=== PATIENT | female | born 1995 | race Two or more races ===

== ENCOUNTER 2023-01-28 03:52 | Inpatient (IN) ==
[2023-01-28] MEDS ORDERED: OXYTOCIN 30 UNITS/500 ML BAG IV PRN ×2 (04:52→05:49)
[2023-01-28] MEDS ORDERED: LIDOCAINE 1% LOCAL 20 ML VIAL INFIL PRN (04:52)
--- NOTE | 2023-01-28 05:52 | History & Physical Report ---
Date of Service January 28, 2023 Assessment & Plan (1) 38 weeks gestation of : (2) PROM (premature rupture of membranes): (3) Encounter for induction of labor: Plan Admit, iv, labs. begin pitocin to improve labor pattern. fhts categ 1. epidural when desires. denies questions or concerns. Admission and Anticipated Discharge Date Admission Date: January 28, 2023 History of Present Illness Chief Complaint: leaking fluid since 3am Primary Care Provider: NO PCP 27yo at 38+wks with above cc. Gross rom on arrival to L&D per nurse and cx 1cm. Contractions q4min but not painful. PNC uncomplicated. PNL rh pos, ri, gbs neg OBH: tab x 1 GYNH: nl paps, no stds Allergies Allergy/AdvReac Type Severity Reaction Status Date / Time No Known Allergies Allergy Verified 01/28/23 04:19 Home Medications Medication Instructions Recorded Confirmed Type prenat.vits,vishnu,hoz-kigz-leazk 1 tab PO DAILY 07/13/22 01/28/23 History sertraline 50 mg tablet (Zoloft) 50 mg PO DAILY 07/13/22 01/28/23 History breast pump #1 ea 09/27/22 01/26/23 Rx Patient History Medical History (Updated 01/28/23 @ 05:52 by Lucero Herron MD, FACOG) Anxiety Surgical History Status post surgery elective Family History (Updated 07/13/22 @ 13:14 by Bethanie Leavitt) Grandmother (Paternal) Breast cancer Aunt defect Denies family history of Ovarian cancer Colorectal cancer Social History (Updated 07/13/22 @ 13:16 by Bethanie Leavitt) Smoking Status: Never smoker Second Hand Exposure: No; Hx Alcohol Use: No Hx Substance Use: No Preferred Language: Bulgarian Communication Ability: Effective 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 Beliefs That Will Affect Care: None marital status: marital status details: Alethea Fernandez (30) [phone] Current Living Situation: Spouse Current Living Situation Comment: lives with spouse, birds current occupational status: unemployed Other Information That Helps Us Care for You: No Feels Safe at Home: Yes Safety Concerns: Feels Safe At This Time Assistive Devices: Glasses Review of Systems as per Subjective / HPI Physical Exam Constitutional: WD/WN, vitals as above Respiratory: normal respiratory effort, lungs clear to auscultation Cardiovascular: Rate/Rhythm: regular rate and regular rhythm Gastrointestinal (Abdomen): soft gravid nt efw 7# Musculoskeletal: no edema nontender calves Neurologic: grossly normal Psychiatric: A+Ox3, euthymic affect Genitourinary: OB Exam Monitor Tracing: + external FHT monitor used, + external uterine monitor used (q3), + category I and + normal FHT variability Results & Data Vital Signs (Past 12 Hours) Vital Signs Temp Pulse Resp BP 01/28/23 04:17 98.1 F 100 H 18 139/69 01/28/23 04:21 98.1 F 100 H 18 139/69 Coding Level of Care Code None Diagnoses 38 weeks gestation of Z3A.38 PROM (premature rupture of membranes) O42.90 Encounter for induction of labor Z34.90
[2023-01-28 06:03] LABS: Hematocrit (blood only) 36.3 % (37.0-47.0); Hemoglobin 12.4 g/dl (12.0-16.0); Mean Corpuscular Hemoglobin 31.8 pg (25.0-34.0); Mean Corpuscular Hgb Conc 34.2 g/dL (32.0-36.0); Mean Corpuscular Volume 93.1 fL (80.0-100.0); Mean Platelet Volume 10.8 fL (9.4-12.4); Platelet Count 236 K/uL (130-400); RDW Coefficient of Variation 13.3 % (11.5-14.5); RDW Standard Deviation 45.2 fL (36.4-46.3); White Blood Count 12.64 K/ul (4.8-10.8)
[2023-01-28] MEDS: LACTATED RINGER'S 1,000 ML IV PRN ×3 (06:27→19:11)
[2023-01-28] MEDS ORDERED: ePHEDrine sulfate 50 MG/ML AMP ONE (13:04)
[2023-01-28] MEDS ORDERED: fentaNYL citrate PF 100 MCG/2 ML VIAL ONE (13:05)
[2023-01-28] MEDS ORDERED: fentaNYL 2MCG/ML ROPIVACAINE 1.25MG/ML 100 ML BAG EPI ONE (13:05)
[2023-01-28] MEDS ORDERED: BUPIVACAINE 0.25% PF 30 ML VIAL ONE (13:05)
[2023-01-28] MEDS ORDERED: SODIUM CHLORIDE 0.9% PF INJ 10 ML VIAL ONE (13:05)
[2023-01-28] MEDS ORDERED: LIDOCAINE 2%/EPINEPHRINE 1:200,000 20 ML PF ONE (13:05)
--- NOTE | 2023-01-28 13:08 | Anesthesiology Consultation ---
Date of Service January 28, 2023 Assessment & Plan (1) Encounter for pre-operative examination: Chart Review Chart Review: Acceptable Risk for Labor Epidural History Height/Weight Height: 5 ft 6 in Weight: 87.09 kg Allergies Allergy/AdvReac Type Severity Reaction Status Date / Time No Known Allergies Allergy Verified 01/28/23 04:19 Medications Home Medications Medication Instructions Recorded Confirmed Last Taken prenat.vits,vishnu,acj-hhff-fgcmf 1 tab PO DAILY 07/13/22 01/28/23 01/27/23 21:00 sertraline 50 mg tablet (Zoloft) 50 mg PO DAILY 07/13/22 01/28/23 01/27/23 21:00 breast pump #1 ea 09/27/22 01/26/23 Unknown Active Medications Generic Name Dose Route Start Last Admin Trade Name Freq PRN Reason Stop Dose Admin Lactated Ringer's 1,000 mls @ 125 mls/hr 01/28/23 04:52 01/28/23 06:27 Lr IV 01/30/23 04:51 125 mls/hr .Q8H PRN Administration L&D Protocol Protocol Oxytocin 30 units in 500 mls @ 13 mls/hr 01/28/23 05:49 01/28/23 12:26 Pitocin IV 01/30/23 05:48 0.78 units/hr .Q24H PRN 13 mls/hr Labor Induction/Augmentation Titration Protocol 0.78 UNITS/HR Past Medical History Medical History Anxiety Past Family History Family History Grandmother (Paternal) Breast cancer Aunt defect Denies family history of Ovarian cancer Colorectal cancer Past Surgical History Surgical History Status post surgery elective Social History Smoking Status: Never smoker Hx Alcohol Use: No Hx Substance Use: No substance use type: does not use Physical Exam Vital Signs Last Vital Signs Temp 36.5 C 01/28/23 10:12 Pulse 88 01/28/23 13:02 Resp 19 01/28/23 10:12 BP 132/70 01/28/23 09:11 Pulse Ox 97 01/28/23 13:02 Testing Laboratory Results 01/28/23 05:11
[2023-01-28] MEDS ORDERED: fentaNYL 2MCG/ML ROPIVACAINE 1.25MG/ML 100 ML BAG EPI PRN (13:38)
[2023-01-28] MEDS ORDERED: NALOXONE HCL 1 MG in SODIUM CHLORIDE 0.9% 1000ML 1,000 ML IV PRN (13:38)
[2023-01-28] MEDS ORDERED: NALOXONE HCL 0.4 MG/1 ML VIAL/CARP IV PRN (13:38)
[2023-01-28] MEDS ORDERED: ONDANSETRON INJ 2 MG/ML 2 ML VIAL IV PRN (13:38)
[2023-01-28] MEDS ORDERED: ePHEDrine sulfate 50 MG/ML AMP IV PRN (13:38)
[2023-01-29] MEDS ORDERED: HYDROCORTISONE ACETATE 25 MG SUPP PR PRN (02:18)
[2023-01-29] MEDS ORDERED: ACETAMINOPHEN 325 MG TAB PO PRN (02:18)
[2023-01-29] MEDS ORDERED: BENZOCAINE 20% AER SPR 82.5 GM CAN EXT PRN (02:18)
[2023-01-29] MEDS ORDERED: OXYTOCIN 30 UNITS/500 ML BAG IV PRN (02:18)
[2023-01-29] MEDS ORDERED: DIPHTHERIA/TETANUS/PERTUSSIS 0.5mL SYR/VIAL (Age 7+yrs) IM ONE (02:18)
[2023-01-29] MEDS: PRENATAL VITAMIN 1 TAB PO SCH (09:33)
[2023-01-29] MEDS: DOCUSATE SODIUM 100 MG CAP PO SCH ×2 (09:33→20:50)
[2023-01-29] MEDS: FERROUS SULFATE 325 MG TAB PO SCH (09:33)
--- NOTE | 2023-01-29 10:08 | Anesthesia Procedure Note ---
Date of Service January 29, 2023 Anesthesia Post Epidural Note Vital Signs Vital Signs: Temp Pulse Resp BP Pulse Ox O2 Del Method 37.0 C 94 H 20 123/68 96 Room Air 01/29/23 04:45 01/29/23 04:45 01/29/23 04:45 01/29/23 04:45 01/29/23 04:45 01/29/23 04:45 Notes Mental Status: alert / awake / arousable and participated in evaluation Nausea / Vomiting: adequately controlled Pain: adequately controlled Airway Patency, RR, SpO2: stable & adequate BP & HR: stable & adequate Hydration State: stable & adequate Neuraxial Anesthesia: was administered and sensory block is resolving Anesthetic Complications: no major complications apparent Epidural: Removed without complications and With tip intact
[2023-01-29] MEDS: IBUPROFEN 600 MG TAB PO PRN ×3 (10:27→22:31)
--- NOTE | 2023-01-29 20:45 | Delivery Summary ---
DATE OF SERVICE: 01/29/2023. PROCEDURE: Normal spontaneous vaginal delivery with second-degree perineal laceration repair. SURGEON: Gregg Marie MD. PREOPERATIVE DIAGNOSES: 1. Single intrauterine at 38 weeks 3 days gestational age. 2. Spontaneous rupture of membranes. POSTOPERATIVE DIAGNOSES: 1. Single intrauterine at 38 weeks 3 days gestational age. 2. Spontaneous rupture of membranes. 3. Status post procedure. ESTIMATED BLOOD LOSS: 300 mL. DRAINS: None. FLUIDS: Continuous lactated Ringer. URINE OUTPUT: Not measured. COMPLICATIONS: None. FINDINGS: Viable female with weight of 7 pounds 1.2 ounces and Apgars of 8 and 8 at 1 and 5 minutes respectively. DESCRIPTION OF PROCEDURE: The patient progressed to 10 cm dilated, 100% effaced, positive 2 station, pushed over intact perineum with epidural anesthesia and delivered a viable female with weig ht and Apgars as noted above. Head of the delivered in RUKHSANA position, restituted right transv erse. No nuchal cord was noted. Body and shoulders quickly followed. was noted to be vigor ous soon after delivery and 1 minute delayed cord clamping was initiated. Cord was then double clamp ed and cut. remained on maternal abdomen. Cord blood was obtained. Attention was then turn ed to delivery of the placenta, which was delivered intact, 3-vessel cord, gentle cord traction. On inspection of perineum, vagina and cervix, there was noted to be a second-degree perineal laceration, which was repaired with traditional crown stitch using 3-0 Vicryl. Needle, sponge, and instrument c ounts were correct at the completion of the case. Both mother and stable in the immediate po st-delivery period. Job ID: [id number]
[2023-01-29] MEDS ORDERED: SERTRALINE HCL 50 MG TABLET PO SCH (21:00)
[2023-01-29] MEDS ORDERED: Nursing to Pharmacy Communication SCH (21:30)
[2023-01-30] MEDS: IBUPROFEN 600 MG TAB PO PRN ×2 (03:30→20:00)
--- NOTE | 2023-01-30 06:35 | Obstetrical Progress Note ---
Date of Service January 30, 2023 Assessment & Plan (1) Encounter for care and examination after delivery: Plan - Overall, feeling well and eating well today - Infant feeding going well without concern - Urinating and passing gas appropriately - Ambulating well in room - Pain controlled w/ Ibuprofen - Hgb 12.4 on 01/28 - Vitals stable and wnl - Routine PP care progressing well - Anticipate discharge @ 48-72 hours PP - Recommending f/u outpatient in 6 weeks Admission and Anticipated Discharge Date Admission Date: January 28, 2023 Supervising Physician Co-Signing Physician Notes patient seen and evaluated with resident and agree with the above findings and plan. continue routine care Subjective Patient is a 27F who is PPD #1 following delivery at 38 weeks. She reports feeling well overall this morning. - Ambulation - well throughout room - Voiding/Santizo - independent voids, no dysuria or pressure - Gas/Stool - passing gas, no bowel movement - Diet - regular, no nausea or emesis - Lochia - diminishing, light amount - Infant Feeding Type - breast feeding (expressed breast milk via pumping) - Pain Level - 0/10, controlled with Ibuprofen Review of Systems - Denies fever, chills, sweats - Denies shortness of breath, difficulty breathing, chest pain, palpitations, chest pressure. - Denies breast pain. - Denies dysuria. - Denies headache or changes in vision. Physical Exam Physical Exam: General: Alert, oriented. No acute distress. Cardiac: RRR, normal S1/S2, no murmurs/rubs/gallops. Respiratory: Non-labored, CTAB, no wheezes/rales/rhonchi. Symmetric chest rise. Abdomen: Soft, nontender, nondistended. Bowel sounds present. Uterus: Uterine fundus firm, palpable 2 cm below umbilicus. Lower Extremities: No lower extremity edema or swelling. No deep calf pain. Dorina's negative bilaterally. Results & Data Vital Signs (Past 12 Hours) Vital Signs Temp Pulse Resp BP Pulse Ox O2 Del Method 01/29/23 23:50 36.6 C 82 16 110/72 97 Room Air 01/29/23 20:50 36.7 C 93 H 16 110/68 96 Room Air Resident Activity Tracking Resident Involvement: Resident Care Provided Care Provided: OB Delivery
[2023-01-30] MEDS: FERROUS SULFATE 325 MG TAB PO SCH (07:48)
[2023-01-30] MEDS: DOCUSATE SODIUM 100 MG CAP PO SCH ×2 (07:48→20:00)
[2023-01-30] MEDS: PRENATAL VITAMIN 1 TAB PO SCH (07:49)
[2023-01-30] MEDS ORDERED: bisacodyL 5 MG TABEC PO SCH (20:00)
[2023-01-30] MEDS ORDERED: SERTRALINE HCL 50 MG TABLET PO SCH (21:00)
[2023-01-31] MEDS ORDERED: bisacodyL 10 MG SUPP PR PRN (02:18)
--- NOTE | 2023-01-31 06:41 | Obstetrical Progress Note ---
Date of Service January 31, 2023 Assessment & Plan (1) Encounter for care and examination after delivery: Plan - Overall, feeling well and eating well today - Infant feeding going well without concern - Urinating and passing gas appropriately - Ambulating well in room - Pain controlled w/ Ibuprofen - Hgb 12.4 on 01/28 - Vitals stable and wnl - Routine PP care progressing well - Anticipate discharge @ 24-48 hours PP - Recommending f/u outpatient in 6 weeks Admission and Anticipated Discharge Date Admission Date: January 28, 2023 Supervising Physician Co-Signing Physician Notes Resident Physician Supervision Note: I interviewed and examined the patient. Discussed with Dr. Osborne and agree with findings and plan as documented in the note. Any exceptions or clarifications are listed here: Doing well. Plan d/c. Instructions given. Documented By: Mira Younger MD, FACOG Subjective Patient is a 27F who is PPD #2 following delivery at 38 weeks. She reports feeling well overall this morning. - Ambulation - well throughout room - Voiding/Santizo - independent voids, no dysuria or pressure - Gas/Stool - passing gas, no bowel movement - Diet - regular, no nausea or emesis - Lochia - diminishing, light amount - Feeding Type - breast feeding (pumping) - Pain Level - 1/10, controlled with Ibuprofen Review of Systems - Denies fever, chills, sweats - Denies shortness of breath, difficulty breathing, chest pain, palpitations, chest pressure. - Denies breast pain. - Denies dysuria. - Denies headache or changes in vision. Physical Exam Physical Exam: General: Alert, oriented. No acute distress. Cardiac: RRR, normal S1/S2, no murmurs/rubs/gallops. Respiratory: Non-labored, CTAB, no wheezes/rales/rhonchi. Symmetric chest rise. Abdomen: Soft, nontender, nondistended. Bowel sounds present. Uterus: Uterine fundus firm, palpable 2 cm below umbilicus. Lower Extremities: No lower extremity edema or swelling. No deep calf pain. Dorina's negative bilaterally. Results & Data Vital Signs (Past 12 Hours) Vital Signs Temp Pulse Resp BP Pulse Ox O2 Del Method 01/30/23 22:49 36.9 C 89 18 119/72 98 Room Air 04/03/23 19:05 36.7 C 89 18 121/73 97 Room Air Resident Activity Tracking Resident Involvement: Resident Care Provided Care Provided: OB Delivery
[2023-01-31] MEDS: PRENATAL VITAMIN 1 TAB PO SCH (08:51)
[2023-01-31] MEDS: FERROUS SULFATE 325 MG TAB PO SCH (08:51)
[2023-01-31] MEDS: DOCUSATE SODIUM 100 MG CAP PO SCH (08:51)
[2023-01-31] MEDS: IBUPROFEN 600 MG TAB PO PRN ×2 (12:16→16:03)
== END 2023-01-31 17:00 | disposition home or self-care (01) | DRG 807 ==
LOC: OPB 03:52 → 4S1 03:55 → 4E2 01-29 05:11